=== PATIENT | female | born 1965 | race Caucasian/White ===

== ENCOUNTER → 2018-04-17 11:02 | Outpatient (CLI) | payer OTHER, SELFPAY ==
--- NOTE | 2018-04-17 | DI.MG.S_ITS ---
BILATERAL DIGITAL SCREENING MAMMOGRAM 3D/2D WITH CAD: 04/17/2018 CLINICAL: Routine screening. Family history of breast cancer. Comparison is made to exams dated: 04/16/2017 mammogram, 03/12/2016 mammogram, and 03/08/2015 mammogram - [facility]. There are scattered fibroglandular elements in both breasts. Current study was also evaluated with a Computer Aided Detection (CAD) system. There is a biopsy clip in the left breast. No significant masses, calcifications, or other findings are seen in either breast. There has been no significant interval change. IMPRESSION: NEGATIVE There is no mammographic evidence of malignancy. A 1 year screening mammogram is recommended. This exam was interpreted at Station ID: [id number]. NOTE: For mammograms, a report in lay terms will be sent to the patient. Approximately 15% of breast malignancies will not be visualized mammographically. In the management of a palpable breast mass, a negative mammogram must not discourage biopsy of a clinically suspicious lesion. Electronically Signed By: Dixon peres/leandra:04/17/2018 12:49:09 letter sent: Normal Exam ACR BI-RADS Category 1: Negative 3341F
== END ==
PROVIDERS: Family Provider Family Medicine; PCP Family Medicine; Visit Provider Family Medicine
DX: Z12.31 Encounter for screening mammogram for malignant neoplasm of breast (principal); Z80.3 Family history of malignant neoplasm of breast
CPT/HCPCS: 77063; 77067

== ENCOUNTER 2018-05-26 12:10 | Day surgery (SDC) | payer OTHER, SELFPAY ==
--- NOTE | 2018-05-26 | PATH_ITS ---
[facility] Accession Number: [id number] . 01 Material submitted: . PART A: CECAL POLYP PART B: PROXIMAL RIGHT COLON POLYP PART C: SIGMOID COLON POLYP . 02 Diagnosis: A. Cecum, Polyp, Biopsy: Tubular adenoma. . B. Proximal Right Colon, Polyp, Biopsy: Tubular adenoma. . C. Sigmoid Colon, Polyp, Biopsy: Tubular adenoma. MRV/05/28/2018 . 02 Electronically signed: . Bernadette uD MD, Pathologist NPI- [id number] . 01 Gross description: . Part A: CECAL POLYP: Received in formalin is 1 fragment(s) of henriquez, soft tissue measuring 0.4 x 0.3 x 0.2 cm submitted entirely in 1 cassette(s) Part B: PROXIMAL RIGHT COLON POLYP: Received in formalin is 1 fragment(s) of henriquez, soft tissue measuring 0.6 x 0.4 x 0.3 cm submitted entirely in 1 cassette(s) Part C: SIGMOID COLON POLYP: Received in formalin are multiple fragment(s) of henriquez, soft tissue measuring 0.8 x 0.3 x 0.2 cm in aggregate submitted entirely in 1 cassette(s) /CKI /CKI . 02 Pathologist provided ICD-10: D12.0, D12.6, D12.5 . 02 CPT . 144695, 921490, 204502 Specimen Comment: A duplicate report has been generated due to demographic updates. Performed at: [facility] [address] [id number] MD Constantine Haynes MD Phone: [phone] [facility]formed [facility]: [facility] [address] [place], [place] [id number] MD Adrian Ayala MD Phone: [phone]
[2018-05-26 13:17] VITALS: BP 164/90; PULSE 60; RESP 14; TEMP 37.2; O2SAT 99; BMI 24.3
--- NOTE | 2018-05-26 14:23 | PM.HP.1 ---
History of Present Illness Date Patient Seen: 05/26/18 Time Patient Seen: 14:24 Chief complaint: colonoscopy [id number] Narrative: Very pleasant 52-year-old lady here for her 1st screening colonoscopy. She reports that she had an episode of bowel obstruction several years ago and has since been a little worried about her bowel function. Objectively, she has no bowel function complaints. She does not have a known family history of colon cancer. She denies any bright red blood per rectum or any other change in her bowel habits. Patient History Surgical History History of dilatation and curettage (Acute) Status post appendectomy (12/13/14) Family & Social History Social History: household members spouse Meds Home Medications Medication Instructions Recorded Confirmed Type CALCIUM CARBONATE/VITAMIN D3 1 tab PO DAILY #0 04/14/11 History (Calcium 600 + Vit D 400 Tablet) FLAXSEED (FLAXSEED OIL) 1 cap PO Q DAY #0 04/14/11 05/26/18 History MULTIVITAMIN (#MULTIPLE VITAMINS) 1 cap PO Q DAY #0 04/14/11 05/26/18 History OMEGA-3/DHA/EPA/FISH OIL ([place]-3 1,000 mg PO BID #0 04/14/11 History Fish Oil 1,000 MG Sfgl) alprazolam 0.25 mg PO PRN #30 tab 05/15/16 05/26/18 Rx citalopram 20 mg PO QDAY #90 tab 07/15/17 05/26/18 Rx estradiol [Estrace] 0.01 % VAGINAL Q DAY PRN #42.5 gm 07/15/17 05/26/18 Rx sumatriptan succinate [Imitrex] 50 mg PO Q DAY PRN PRN 05/26/18 05/26/18 History Allergies Allergy/AdvReac Type Severity Reaction Status Date / Time Sulfa (Sulfonamide Allergy Severe RASH/SWOLLEN Unverified 05/26/18 13:14 Antibiotics) LYMPH NODES [SULFA (SULFONAMIDE ANTIBIOTICS)] trimethoprim [TRIMETHOPRIM] Allergy Severe RASH/SWOLLEN Unverified 05/26/18 13:14 LYMPH NODES zonisamide [ZONISAMIDE] Allergy Severe FULL BODY Unverified 05/26/18 13:14 RASH nickel Allergy Mild Itchy rash Verified 05/26/18 13:13 Review of Systems Review of Systems All systems reviewed & are unremarkable except as noted in HPI and below Exam Vital Signs (past 8 hours): - 05/26/18 13:17 Temperature 99.0 F Pulse Rate 60 Respiratory Rate 14 Blood Pressure 164/90 H Pulse Oximetry 99 Oxygen Delivery Method Room Air Narrative Exam Narrative: Very pleasant well-nourished and well-developed lady in no distress HEENT: Normocephalic and atraumatic, pupils equal round reactive to light accommodation with anicteric sclera Lungs: Clear auscultation bilaterally Heart: Regular rate and rhythm without murmur rub or gallop Abdomen: Soft, nontender, active bowel sounds Extremities: Warm well perfused without edema Assessment & Plan Plan: Assessment/Plan Narrative: Very pleasant 52-year-old lady here for her 1st screening colonoscopy. We discussed the risks and benefits of the procedure the patient expressed a desire to complete it today
--- NOTE | 2018-05-26 14:26 | P.HP_ITS ---
History of Present Illness Date Patient Seen: 05/26/18 Time Patient Seen: 14:24 Chief complaint: colonoscopy [id number] Narrative: Very pleasant 52-year-old lady here for her 1st screening colonoscopy. She reports that she had an episode of bowel obstruction several years ago and has since been a little worried about her bowel function. Objectively, she has no bowel function complaints. She does not have a known family history of colon cancer. She denies any bright red blood per rectum or any other change in her bowel habits. Patient History Surgical History History of dilatation and curettage (Acute) Status post appendectomy (12/13/14) Family & Social History Social History: household members spouse Meds Home Medications Medication Instructions Recorded Confirmed Type CALCIUM CARBONATE/VITAMIN D3 1 tab PO DAILY #0 04/14/11 History (Calcium 600 + Vit D 400 Tablet) FLAXSEED (FLAXSEED OIL) 1 cap PO Q DAY #0 04/14/11 05/26/18 History MULTIVITAMIN (#MULTIPLE VITAMINS) 1 cap PO Q DAY #0 04/14/11 05/26/18 History OMEGA-3/DHA/EPA/FISH OIL ([place]-3 1,000 mg PO BID #0 04/14/11 History Fish Oil 1,000 MG Sfgl) alprazolam 0.25 mg PO PRN #30 tab 05/15/16 05/26/18 Rx citalopram 20 mg PO QDAY #90 tab 07/15/17 05/26/18 Rx estradiol [Estrace] 0.01 % VAGINAL Q DAY PRN #42.5 gm 07/15/17 05/26/18 Rx sumatriptan succinate [Imitrex] 50 mg PO Q DAY PRN PRN 05/26/18 05/26/18 History Allergies Allergy/AdvReac Type Severity Reaction Status Date / Time Sulfa (Sulfonamide Allergy Severe RASH/SWOLLEN Unverified 05/26/18 13:14 Antibiotics) LYMPH NODES [SULFA (SULFONAMIDE ANTIBIOTICS)] trimethoprim [TRIMETHOPRIM] Allergy Severe RASH/SWOLLEN Unverified 05/26/18 13: 14 LYMPH NODES zonisamide [ZONISAMIDE] Allergy Severe FULL BODY Unverified 05/26/18 13:14 RASH nickel Allergy Mild Itchy rash Verified 05/26/18 13:13 Review of Systems Review of Systems All systems reviewed & are unremarkable except as noted in HPI and below Exam Vital Signs (past 8 hours): - 05/26/18 13:17 Temperature 99.0 F Pulse Rate 60 Respiratory Rate 14 Blood Pressure 164/90 H Pulse Oximetry 99 Oxygen Delivery Method Room Air Narrative Exam Narrative: Very pleasant well-nourished and well-developed lady in no distress HEENT: Normocephalic and atraumatic, pupils equal round reactive to light accommodation with anicteric sclera Lungs: Clear auscultation bilaterally Heart: Regular rate and rhythm without murmur rub or gallop Abdomen: Soft, nontender, active bowel sounds Extremities: Warm well perfused without edema Assessment & Plan Plan: Assessment/Plan Narrative: Very pleasant 52-year-old lady here for her 1st screening colonoscopy. We discussed the risks and benefits of the procedure the patient expressed a desire to complete it today
[2018-05-26] MEDS: MIDAZOLAM 5 MG/5 ML VIAL IV (14:58)
[2018-05-26] MEDS: fentaNYL 250 MCG/5 ML INJ IV (14:58)
--- NOTE | 2018-05-26 15:13 | PM.OP.1 ---
Operative Date/Time/Diagnoses Date of procedure: 05/26/18 Time of procedure: 15:13 Pre-op diagnosis: Screening colonoscopy Post-op diagnosis: same Procedure & Clinicians Procedure: Colonoscopy to the cecum with polypectomy x3 Same procedure as scheduled: Yes Indications: No prior colonoscopy Surgeon: Nora Ibarra Click Yes if Unassisted: Yes Anesthesia Type: Sedation (Versed 15 mg; fentanyl 400 mcg) Operative Notes Findings: 1. Excellent prep 2. One 3 mm polyp in the floor of the cecum-removed with cold forceps and submitted for pathology 3. One 3 mm sessile polyp in the proximal right colon-removed with cold forceps and submitted for pathology 4. One 5 mm sessile polyp at 15 cm-removed with cold forceps and submitted for pathology 5. Very minimal sigmoid diverticulosis 6. Grade 2 internal hemorrhoids Closure Type: not applicable Specimen(s): other (See list) Estimated Blood Loss (mL): 1 Procedure in detail: After obtaining informed consent, the patient was brought to the GI suite and placed in the left lateral decubitus position on the examination table. After placement of appropriate monitors, the patient was given incremental doses of Versed and Fentanyl until an appropriate level of sedation was achieved. A time out was held per SCOAP protocol. A digital rectal examination was performed and did not reveal any masses or obstructing lesions. The colonoscope was gently passed into the patient's anus and the entire colon navigated to the level of the cecum with minimal difficulty. Once in the cecum, the scope was withdrawn being sure to go before and beyond all mucosal folds and prominences and get an excellent examination. The findings are noted above. At the level of the rectal vault, the scope was retroflexed and the internal anal canal was examined. The scope was straightened and air aspirated from the colon. The instrument was removed from the patient's body and the procedure was concluded. The patient was allowed to awaken from sedation without difficulty and taken to the post-anesthesia care unit in good condition. Total sedation time 42 min Total withdrawal time 22 min Complications: none Condition: stable Disposition: PACU Plan for aftercare: 1. Discharge to home 2. Plan for repeat colonoscopy in 3 years due to the number and size of polyps.
[2018-05-26 15:17] VITALS: BP 120/75; PULSE 62; RESP 7; TEMP 36.6; O2SAT 97
[2018-05-26 15:22] VITALS: BP 125/82; PULSE 63; RESP 9; TEMP 36.6; O2SAT 97
[2018-05-26 15:26] VITALS: BP 118/79; PULSE 63; RESP 8; TEMP 36.4; O2SAT 98
[2018-05-26 15:29] VITALS: BP 119/84; PULSE 65; RESP 8; TEMP 36.6; O2SAT 97
== END 2018-05-26 15:49 | disposition home or self-care (01) ==
PROVIDERS: PCP Family Medicine; Visit Provider Surgery
PROC: 0DJD8ZZ Inspection of Lower Intestinal Tract, Via Natural or Artificial Opening Endoscopic (ICD-10-PCS; CPT 45378; principal; 2018-05-26 13:15)
DX: Z12.11 Encounter for screening for malignant neoplasm of colon (principal); K57.30 Diverticulosis of large intestine without perforation or abscess without bleeding; K64.1 Second degree hemorrhoids; D12.0 Benign neoplasm of cecum; D12.2 Benign neoplasm of ascending colon; D12.5 Benign neoplasm of sigmoid colon
CPT/HCPCS: 45380; 99152; 99153; J2250; J3010

== ENCOUNTER → 2018-11-05 10:48 | Outpatient (CLI) | payer OTHER, SELFPAY ==
[2018-11-05 12:21] LABS: Add Manual Diff / Slide Review NO; Basophils Absolute Auto 0 /uL (0-100); Basophils Percent Auto 0.5 % (0-2); Eosinophils Absolute Auto 100 /uL (0-450); Eosinophils Percent Auto 1.1 % (2-4); Hematocrit 44.7 % (36-46); Hemoglobin 14.8 g/dL (12.0-16.0); Lymphocytes Absolute Auto 1900 /uL (1100-4500); Lymphocytes Percent Auto 31.1 % (25-40); Mean Corpuscular HGB Conc 33.2 % (30-36); Mean Corpuscular Hemoglobin 32.3 PG (26-34); Mean Corpuscular Volume 97.4 fL (80-100); Monocytes Absolute Auto 400 /uL (0-900); Monocytes Percent Auto 5.8 % (3-14); Neutrophils Absolute Auto 3800 /uL (1500-7000); Neutrophils Percent Auto 61.5 % (50-75); Platelet Count 278 X10^3/uL (150-400); Red Blood Cell Count 4.59 X10^6/uL (4.0-5.2); Red Cell Distribution Width 12.4 % (11.6-14.8); White Blood Cell Count 6.2 X10^3/uL (4.5-11.0)
[2018-11-05 12:30] LABS: Alanine Aminotransferase 41 IU/L (9-52); Albumin 4.6 g/dL (3.5-5.0); Albumin Globulin Ratio 1.5 (1.0-2.8); Alkaline Phosphatase 62 U/L (38-126); Aspartate Aminotransferase 30 IU/L (14-36); BUN Creatinine Ratio 18.3 (6-22); Bilirubin Total 0.8 mg/dL (0.2-1.3); Blood Urea Nitrogen 11 mg/dL (7-17); Calcium 9.6 mg/dL (8.4-10.2); Carbon Dioxide 30 mmol/L (22-32); Chloride 98 mmol/L (98-107); Cholesterol 232 mg/dL (140-199); Estimated Glomerular Filt Rate > 60.0 mL/min (>60); Glucose 93 mg/dL (70-100); HEMOLYSIS < 15 (0-50); Magnesium 1.8 mg/dL (1.6-2.3); Potassium 4.7 mmol/L (3.4-5.1); Sodium 136 mmol/L (137-145); Total Protein 7.6 g/dL (6.3-8.2); Triglycerides 74 mg/dL (35-150)
[2018-11-05 12:44] LABS: HDL Cholesterol 113 mg/dL (40-60); LDL Cholesterol Calculated 104 mg/dL (<100)
[2018-11-05 12:59] LABS: Thyroid Stimulating Hormone 1.31 uIU/mL (0.47-4.68)
[2018-11-05 16:05] LABS: Microalbumin Urine Random < 0.6 mg/dL (0-1.6)
[2018-11-05 16:06] LABS: Creatinine Urine Random 18 mg/dL; Microalbumi Creatinin Ratio Ur < 33.3 ug/mg CR (<30)
== END ==
PROVIDERS: PCP Family Medicine; Visit Provider Family Medicine
DX: E78.5 Hyperlipidemia, unspecified (principal); I10 Essential (primary) hypertension; R89.9 Unspecified abnormal finding in specimens from other organs, systems and tissues
CPT/HCPCS: 36415; 80053; 80061; 82043; 82570; 83735; 84443; 85025

== ENCOUNTER → 2019-05-08 12:01 | Outpatient (CLI) | payer OTHER, SELFPAY ==
[2019-05-08 13:35] LABS: Cholesterol 231 mg/dL (140-199); Triglycerides 62 mg/dL (35-150)
[2019-05-08 13:45] LABS: HDL Cholesterol 134 mg/dL (40-60); LDL Cholesterol Calculated 85 mg/dL (<100)
== END ==
PROVIDERS: PCP Family Medicine; Visit Provider Family Medicine
DX: E78.5 Hyperlipidemia, unspecified (principal)
CPT/HCPCS: 80061

== ENCOUNTER → 2019-05-12 10:48 | Outpatient (CLI) | payer OTHER, SELFPAY ==
--- NOTE | 2019-05-12 | DI.MG.S_ITS ---
BILATERAL DIGITAL SCREENING MAMMOGRAM 3D/2D WITH CAD: 05/12/2019 CLINICAL: Routine screening. Family history of breast cancer. Comparison is made to exams dated: 04/17/2018 mammogram, 04/16/2017 mammogram, and 03/12/2016 mammogram - [facility]. There are scattered fibroglandular elements in both breasts. Current study was also evaluated with a Computer Aided Detection (CAD) system. There is a biopsy clip in the left breast. No significant masses, calcifications, or other findings are seen in either breast. There has been no significant interval change. IMPRESSION: NEGATIVE There is no mammographic evidence of malignancy. A 1 year screening mammogram is recommended. This exam was interpreted at Station ID: [id number]. NOTE: For mammograms, a report in lay terms will be sent to the patient. Approximately 15% of breast malignancies will not be visualized mammographically. In the management of a palpable breast mass, a negative mammogram must not discourage biopsy of a clinically suspicious lesion. Electronically Signed By: Dennise carty/leandra:05/12/2019 15:04:28 letter sent: Normal Exam ACR BI-RADS Category 1: Negative 3341F
== END ==
PROVIDERS: PCP Family Medicine; Visit Provider Family Medicine
DX: Z12.31 Encounter for screening mammogram for malignant neoplasm of breast (principal); Z80.3 Family history of malignant neoplasm of breast
CPT/HCPCS: 77063; 77067

== ENCOUNTER → 2019-08-20 11:37 | Outpatient (CLI) | payer OTHER, SELFPAY ==
[2019-08-20 12:27] LABS: BUN Creatinine Ratio 18.3 (6-22); Blood Urea Nitrogen 11 mg/dL (7-17); Calcium 9.1 mg/dL (8.4-10.2); Carbon Dioxide 32 mmol/L (22-32); Chloride 100 mmol/L (98-107); Estimated Glomerular Filt Rate > 60.0 mL/min (>60); Glucose 78 mg/dL (70-100); HEMOLYSIS < 15 (0-50); Potassium 3.8 mmol/L (3.4-5.1); Sodium 135 mmol/L (137-145)
== END ==
PROVIDERS: PCP Family Medicine; Visit Provider Family Medicine
DX: I10 Essential (primary) hypertension (principal)
CPT/HCPCS: 36415; 80048

== ENCOUNTER → 2020-05-31 15:54 | Outpatient (CLI) | payer OTHER, SELFPAY ==
--- NOTE | 2020-05-31 | DI.MG.S_ITS ---
BILATERAL DIGITAL SCREENING MAMMOGRAM 3D/2D WITH CAD: 05/31/2020 CLINICAL: Routine screening. Family history of breast cancer. Comparison is made to exams dated: 05/12/2019 mammogram, 04/17/2018 mammogram, and 04/16/2017 mammogram - [facility]. There are scattered fibroglandular elements in both breasts. Current study was also evaluated with a Computer Aided Detection (CAD) system. There is a biopsy clip in the left breast. No significant masses, calcifications, or other findings are seen in either breast. There has been no significant interval change. IMPRESSION: NEGATIVE There is no mammographic evidence of malignancy. A 1 year screening mammogram is recommended. This exam was interpreted at Station ID: [id number]. NOTE: For mammograms, a report in lay terms will be sent to the patient. Approximately 15% of breast malignancies will not be visualized mammographically. In the management of a palpable breast mass, a negative mammogram must not discourage biopsy of a clinically suspicious lesion. Electronically Signed By: Constantine montero/leandra:05/31/2020 16:21:11 letter sent: Normal Exam ACR BI-RADS Category 1: Negative 3341F
== END ==
PROVIDERS: PCP Family Medicine; Referring Provider Family Medicine; Visit Provider Family Medicine
DX: Z12.31 Encounter for screening mammogram for malignant neoplasm of breast (principal); Z80.3 Family history of malignant neoplasm of breast
CPT/HCPCS: 77063; 77067

== ENCOUNTER → 2020-06-03 10:57 | Outpatient (CLI) | payer OTHER, SELFPAY ==
[2020-06-03 11:54] LABS: Add Manual Diff / Slide Review NO; Basophils Absolute Auto 0 /uL (0-100); Basophils Percent Auto 0.6 % (0-2); Eosinophils Absolute Auto 100 /uL (0-450); Eosinophils Percent Auto 1.5 % (2-4); Hemoglobin 13.6 g/dL (12.0-16.0); Lymphocytes Absolute Auto 1400 /uL (1100-4500); Lymphocytes Percent Auto 27.5 % (25-40); Mean Corpuscular HGB Conc 33.2 % (30-36); Mean Corpuscular Hemoglobin 32.6 PG (26-34); Mean Corpuscular Volume 98.2 fL (80-100); Monocytes Absolute Auto 300 /uL (0-900); Monocytes Percent Auto 6.4 % (3-14); Neutrophils Absolute Auto 3200 /uL (1500-7000); Platelet Count 221 X10^3/uL (150-400); Red Blood Cell Count 4.18 X10^6/uL (4.0-5.2); Red Cell Distribution Width 12.8 % (11.6-14.8)
[2020-06-03 12:23] LABS: Alanine Aminotransferase 35 IU/L (<35); Albumin 4.2 g/dL (3.5-5.0); Albumin Globulin Ratio 1.4 (1.0-2.8); Alkaline Phosphatase 66 U/L (38-126); Aspartate Aminotransferase 38 IU/L (14-36); Bilirubin Total 0.6 mg/dL (0.2-1.3); Blood Urea Nitrogen 12 mg/dL (7-17); Calcium 9.1 mg/dL (8.4-10.2); Carbon Dioxide 29 mmol/L (22-32); Chloride 101 mmol/L (98-107); Cholesterol 221 mg/dL (140-199); Estimated Glomerular Filt Rate > 60.0 mL/min (>60); Glucose 97 mg/dL (70-100); HEMOLYSIS < 15 (0-50); Potassium 4.1 mmol/L (3.4-5.1); Sodium 134 mmol/L (137-145); Total Protein 7.2 g/dL (6.3-8.2); Triglycerides 55 mg/dL (35-150)
[2020-06-03 12:33] LABS: HDL Cholesterol 125 mg/dL (40-60); LDL Cholesterol Calculated 85 mg/dL (<100)
[2020-06-03 12:50] LABS: Thyroid Stimulating Hormone 0.941 uIU/mL (0.47-4.68)
== END ==
PROVIDERS: PCP Family Medicine; Referring Provider Family Medicine; Visit Provider Family Medicine
DX: I10 Essential (primary) hypertension (principal)
CPT/HCPCS: 36415; 80053; 80061; 84443; 85025

== ENCOUNTER → 2021-01-05 10:25 | Outpatient (CLI) | payer OTHER, SELFPAY ==
[2021-01-05 11:53] LABS: Hematocrit 43.2 % (36-46); Hemoglobin 14.1 g/dL (12.0-16.0); Mean Corpuscular HGB Conc 32.7 % (30-36); Mean Corpuscular Hemoglobin 32.6 PG (26-34); Mean Corpuscular Volume 99.7 fL (80-100); Platelet Count 221 X10^3/uL (150-400); Red Blood Cell Count 4.33 X10^6/uL (4.0-5.2); Red Cell Distribution Width 12.8 % (11.6-14.8)
[2021-01-05 12:06] LABS: Alanine Aminotransferase 24 IU/L (<35); Albumin 4.3 g/dL (3.5-5.0); Albumin Globulin Ratio 1.4 (1.0-2.8); Alkaline Phosphatase 52 U/L (38-126); Aspartate Aminotransferase 34 IU/L (14-36); BUN Creatinine Ratio 22.4 (6-22); Bilirubin Total 0.6 mg/dL (0.2-1.3); Blood Urea Nitrogen 13 mg/dL (7-17); Calcium 9.6 mg/dL (8.4-10.2); Carbon Dioxide 27 mmol/L (22-32); Chloride 97 mmol/L (98-107); Estimated Glomerular Filt Rate > 60.0 mL/min (>60); Globulin 3.1 g/dL (1.7-4.1); Glucose 97 mg/dL (70-100); HEMOLYSIS < 15 (0-50); Potassium 3.6 mmol/L (3.4-5.1); Sodium 133 mmol/L (137-145); Total Protein 7.4 g/dL (6.3-8.2)
== END ==
PROVIDERS: PCP Nurse Practitioner Family; Referring Provider Nurse Practitioner Family; Visit Provider Nurse Practitioner Family
DX: I10 Essential (primary) hypertension (principal)
CPT/HCPCS: 36415; 80053; 85027

== ENCOUNTER → 2021-04-04 11:02 | Outpatient (CLI) | payer OTHER, SELFPAY ==
[2021-04-04 13:39] LABS: BUN Creatinine Ratio 21.9 (6-22); Blood Urea Nitrogen 14 mg/dL (7-17); Calcium 9.8 mg/dL (8.4-10.2); Carbon Dioxide 28 mmol/L (22-32); Chloride 101 mmol/L (98-107); Estimated Glomerular Filt Rate > 60.0 mL/min (>60); Glucose 93 mg/dL (70-100); HEMOLYSIS < 15 (0-50); Potassium 4.3 mmol/L (3.4-5.1); Sodium 135 mmol/L (137-145)
[2021-04-04 14:22] LABS: Urine N gonorrhoeae NOT DETECTED
[2021-04-04 14:29] LABS: Urine Chlamydia NOT DETECTED
[2021-04-05 05:34] LABS: HSV 2 IGG AB 5.76 index (0.00-0.90); HSV1IGG < 0.91 index (0.00-0.90)
[2021-04-05 07:50] LABS: RPR Screen Non Reactive (Non Reactive)
[2021-04-05 17:48] LABS: HIV 1 & 2 Ab/Ag 4th Gen Combo NEGATIVE (NEGATIVE)
== END ==
PROVIDERS: PCP Nurse Practitioner Family; Referring Provider Nurse Practitioner Family; Visit Provider Nurse Practitioner Family
DX: N88.8 Other specified noninflammatory disorders of cervix uteri (principal); E87.1 Hypo-osmolality and hyponatremia
CPT/HCPCS: 36415; 80048; 86592; 86695; 86696; 87389; 87491; 87591

== ENCOUNTER → 2021-05-01 10:37 | Outpatient (CLI) | payer OTHER, SELFPAY ==
--- NOTE | 2021-05-01 10:40 | DI.CT.S_ITS ---
PROCEDURE: CT PELVIS W CON INDICATIONS: Abnormal friable cervix TECHNIQUE: After the administration of intravenous contrast, 5 mm thick sections acquired from the iliac crests to the symphysis. 5 mm coronal and sagittal reformats were acquired. For radiation dose reduction, the following was used: automated exposure control, adjustment of mA and/or kV according to patient size. COMPARISON: None. FINDINGS: Image quality: Excellent. Peritoneum and bowel: Bowel loops demonstrate normal wall thickness and caliber. Occasional colonic diverticula. No free fluid or air. Genitourinary: Bladder wall thickness is normal. Anteverted uterus is normal length measuring about 8.3 cm. The myometrium is slightly heterogeneous without a discrete mass visible. The contour of the cervix is within normal limits, though soft tissue definition on CT is suboptimal. No visible perineal mass. Ovaries are not well seen but there are no suspicious adnexal mass is visible. Nodes and vessels: No iliac, pelvic, or inguinal adenopathy by size criteria. Iliac vessels demonstrate normal size and enhancement. Bones: No suspicious bony lesions. Lower lumbar facet arthropathy and degenerative disc change. Mild degenerative changes in the hip joints. Miscellaneous: No inguinal hernias. IMPRESSION: 1. No suspicious pelvic mass or adenopathy. Dictated by: Dennise Wilson M.D. on 05/01/2021 at 14:43 Approved by: Dennise Wilson M.D. on 05/01/2021 at 14:48
== END ==
PROVIDERS: PCP Nurse Practitioner Family; Referring Provider Obstetrics & Gynecology; Visit Provider Obstetrics & Gynecology
DX: N88.9 Noninflammatory disorder of cervix uteri, unspecified (principal)
CPT/HCPCS: 72193

== ENCOUNTER → 2021-05-21 13:33 | Outpatient (CLI) | payer OTHER, SELFPAY ==
--- NOTE | 2021-05-21 13:33 | DI.MRI.S_ITS ---
PROCEDURE: MR PELVIS WO CON INDICATIONS: Post-coital bleeding and pain; Abn cervical anatomy TECHNIQUE: Coronal HASTE, sagittal breath-hold T2 FSE; axial T1 FSE with and without fat saturation through the pelvis. Optional long- and short-axis uterine nonbreath-hold T2 FSE through the uterus. Sagittal or axial dynamic VIBE during administration of contrast. Post-contrast axial or coronal VIBE/2-D FLASH with fat saturation from the iliac crests to the symphysis. Optional diffusion weighted imaging and ADC may be performed. COMPARISON: [facility], CT, CT PELVIS W CON, 05/01/2021, 10:56. FINDINGS: Image quality: Fair. Uterus: Uterus is anteverted and normal in size. Uterus measures 8.6 x 5 x 4.2 cm. No fibroids identified. Endometrium is within normal limits in thickness measuring 0.4 cm. Junctional zone is normal in thickness at 12 mm or less. Adnexa: Ovaries are not well seen. No suspicious cystic or solid lesions identified. Urinary system: Bladder wall is normal in thickness. Distal ureters are non distended. Urethra appears normal in morphology. Nodes and vessels: No pelvic or inguinal adenopathy by size criteria. Iliac vessels are normal in size. Bowel and peritoneum: No pathologic free pelvic fluid. Inferior colon and small bowel loops are normal in caliber. A few colonic diverticuli. Soft tissues: No inguinal hernias. No findings of pelvic floor incompetence in the absence of provocation. Bones: Marrow demonstrates normal overall signal. IMPRESSION: 1. Uterus is at the upper limits of normal in size. No fibroids identified. 2. Endometrium measures 0.4 cm in thickness. 3. The ovaries are not well seen. No cystic lesion. No free fluid. If clinically indicated consider further evaluation with pelvic ultrasound. Dictated by: Nando Allen M.D. on 05/21/2021 at 17:44 Approved by: Nando Allen M.D. on 05/21/2021 at 17:53
== END ==
PROVIDERS: PCP Nurse Practitioner Family; Referring Provider Obstetrics & Gynecology; Visit Provider Obstetrics & Gynecology
DX: N93.0 Postcoital and contact bleeding (principal); N88.9 Noninflammatory disorder of cervix uteri, unspecified
CPT/HCPCS: 72195

== ENCOUNTER → 2021-06-12 12:40 | Outpatient (CLI) | payer OTHER, SELFPAY ==
--- NOTE | 2021-06-12 12:41 | DI.US.S_ITS ---
PROCEDURE: US PELVIC COMPLETE INDICATIONS: abnormal MRI TECHNIQUE: Real-time scanning was performed of the pelvic organs, with image documentation. Additional endovaginal scanning was necessary due to incomplete visualization of the adnexal and endometrial structures by transabdominal scanning. COMPARISON: [facility], CT, CT PELVIS W CON, 05/01/2021, 10:56. [facility], MR, MR PELVIS WO CON, 05/21/2021, 13:48. FINDINGS: Uterus: Uterus is normal in size at 8.6 x 3.7 x 4.6 cm. The endometrium measures approximately 3 mm in combined thickness. There is irregularity seen along the cervix, with areas of apparent calcification. Ovaries: Neither ovary is well seen. Other: No pathologic free abdominal or pelvic fluid. IMPRESSION: The endometrial stripe does not appear thickened. Apparent calcifications seen involving the cervix. Differential diagnosis would bubbles of gas, however. Limited study, without visualization either ovary. Dictated by: Marbin Schaefer M.D. on 06/12/2021 at 12:46 Approved by: Marbin Schaefer M.D. on 06/12/2021 at 12:50
== END ==
PROVIDERS: PCP Nurse Practitioner Family; Referring Provider Nurse Practitioner Family; Visit Provider Nurse Practitioner Family
DX: N88.8 Other specified noninflammatory disorders of cervix uteri
CPT/HCPCS: 76830; 76856

== ENCOUNTER → 2021-07-17 16:17 | Outpatient (CLI) | payer OTHER, SELFPAY ==
--- NOTE | 2021-07-17 | DI.MG.S_ITS ---
BILATERAL DIGITAL SCREENING MAMMOGRAM 3D/2D WITH CAD: 07/17/2021 CLINICAL: Routine screening. Family history of breast cancer. Comparison is made to exams dated: 05/12/2019 mammogram, 04/17/2018 mammogram, and 05/31/2020 mammogram - [facility]. There are scattered fibroglandular elements in both breasts. Current study was also evaluated with a Computer Aided Detection (CAD) system. There is a biopsy clip in the left breast. No significant masses, calcifications, or other findings are seen in either breast. There has been no significant interval change. IMPRESSION: NEGATIVE There is no mammographic evidence of malignancy. A 1 year screening mammogram is recommended. This exam was interpreted at Station ID: [id number]. NOTE: For mammograms, a report in lay terms will be sent to the patient. Approximately 15% of breast malignancies will not be visualized mammographically. In the management of a palpable breast mass, a negative mammogram must not discourage biopsy of a clinically suspicious lesion. Electronically Signed By: Ricco lopez/leandra:07/18/2021 09:51:11 letter sent: Normal Exam ACR BI-RADS Category 1: Negative 3341F
== END ==
PROVIDERS: PCP Nurse Practitioner Family; Referring Provider Nurse Practitioner Family; Visit Provider Nurse Practitioner Family
DX: Z12.31 Encounter for screening mammogram for malignant neoplasm of breast (principal); Z80.3 Family history of malignant neoplasm of breast
CPT/HCPCS: 77063; 77067

== ENCOUNTER → 2022-08-27 11:21 | Outpatient (CLI) | payer OTHER, SELFPAY ==
--- NOTE | 2022-08-27 | DI.MG.S_ITS ---
BILATERAL DIGITAL SCREENING MAMMOGRAM 3D/2D WITH CAD: 08/27/2022 CLINICAL: Routine screening. Family history of breast cancer. Comparison is made to exams dated: 07/17/2021 mammogram, 05/31/2020 mammogram, and 05/12/2019 mammogram - [facility]. There are scattered areas of fibroglandular density in both breasts (category b / 25%-50% glandular tissue). Current study was also evaluated with a Computer Aided Detection (CAD) system. There is a biopsy clip in the left breast. No significant masses, calcifications, or other findings are seen in either breast. There has been no significant interval change. IMPRESSION: NEGATIVE There is no mammographic evidence of malignancy. A 1 year screening mammogram is recommended. Based on the Tyrer Cuzick model (a risk assessment model) the patient's lifetime risk is 10.6% and her 10 year risk is 4.1%. According to the ACR, ACS, and NCCN guidelines, an annual breast MRI exam along with mammogram is recommended if the patient's lifetime risk is 20% or greater. This exam was interpreted at Station ID: [id number]. NOTE: For mammograms, a report in lay terms will be sent to the patient. Approximately 15% of breast malignancies will not be visualized mammographically. In the management of a palpable breast mass, a negative mammogram must not discourage biopsy of a clinically suspicious lesion. Electronically Signed By: Ricco lopez/leandra:08/27/2022 11:47:04 letter sent: Normal Exam ACR BI-RADS Category 1: Negative 3341F
== END ==
PROVIDERS: PCP Family Medicine; Referring Provider Family Medicine; Visit Provider Pediatrics
DX: Z12.31 Encounter for screening mammogram for malignant neoplasm of breast (principal); Z80.3 Family history of malignant neoplasm of breast
CPT/HCPCS: 77063; 77067

== ENCOUNTER → 2023-07-15 11:48 | Outpatient (CLI) | payer OTHER, SELFPAY ==
[2023-07-15 12:57] LABS: Alanine Aminotransferase 26 IU/L (<35); Albumin 4.4 g/dL (3.5-5.0); Albumin Globulin Ratio 1.5 (1.0-2.8); Alkaline Phosphatase 63 U/L (38-126); Aspartate Aminotransferase 31 IU/L (14-36); BUN Creatinine Ratio 18.6 (6-22); Bilirubin Total 0.9 mg/dL (0.2-1.3); Blood Urea Nitrogen 11 mg/dL (7-17); Calcium 9.3 mg/dL (8.4-10.2); Carbon Dioxide 30 mmol/L (22-32); Chloride 101 mmol/L (98-107); Cholesterol 232 mg/dL (140-199); Estimated Glomerular Filt Rate > 60 mL/min (>60); Globulin 2.9 g/dL (1.7-4.1); Glucose 113 mg/dL (70-100); HEMOLYSIS < 15 (0-50); Potassium 3.9 mmol/L (3.4-5.1); Sodium 134 mmol/L (137-145); Total Protein 7.3 g/dL (6.3-8.2); Triglycerides 65 mg/dL (35-150)
[2023-07-15 13:14] LABS: HDL Cholesterol 125 mg/dL (40-60); LDL Cholesterol Calculated 94 mg/dL (<100)
[2023-07-15 15:23] LABS: Creatinine Urine Random 14.5 mg/dL
[2023-07-15 15:31] LABS: Microalbumin Urine Random < 0.6 mg/dL (0-1.6)
== END ==
PROVIDERS: PCP Family Medicine; Referring Provider Family Medicine; Visit Provider Family Medicine
DX: I10 Essential (primary) hypertension (principal); E78.5 Hyperlipidemia, unspecified
CPT/HCPCS: 36415; 80053; 80061; 82043; 82570

== ENCOUNTER → 2023-09-18 12:40 | Outpatient (CLI) | payer OTHER, SELFPAY ==
--- NOTE | 2023-09-18 12:41 | DI.MG.S_ITS ---
BILATERAL DIGITAL SCREENING MAMMOGRAM 3D/2D WITH CAD: 09/18/2023 CLINICAL: Routine screening. Family history of breast cancer. Comparison is made to exams dated: 08/27/2022 mammogram, 07/17/2021 mammogram, and 05/31/2020 mammogram - [facility]. Both breasts are heterogeneously dense, which may obscure small masses (category c / 51-75% glandular tissue). Current study was also evaluated with a Computer Aided Detection (CAD) system. There is a biopsy clip in the left breast. No significant masses, calcifications, or other findings are seen in either breast. There has been no significant interval change. IMPRESSION: BENIGN There is no mammographic evidence of malignancy. A 1 year screening mammogram is recommended. Based on the Tyrer Cuzick model (a risk assessment model) the patient's lifetime risk is 15.5% and her 10 year risk is 6.4%. According to the ACR, ACS, and NCCN guidelines, an annual breast MRI exam along with mammogram is recommended if the patient's lifetime risk is 20% or greater. This exam was interpreted at Station ID: [id number]. NOTE: For mammograms, a report in lay terms will be sent to the patient. Approximately 15% of breast malignancies will not be visualized mammographically. In the management of a palpable breast mass, a negative mammogram must not discourage biopsy of a clinically suspicious lesion. Electronically Signed By: Suman cardenas/leandra:09/18/2023 16:13:25 letter sent: Normal Exam ACR BI-RADS Category 2: Benign Finding(s) 3342F
== END ==
LOC: MAMMO 12:41
PROVIDERS: PCP Family Medicine; Referring Provider Family Medicine; Visit Provider Family Medicine
DX: Z12.31 Encounter for screening mammogram for malignant neoplasm of breast (principal); Z80.3 Family history of malignant neoplasm of breast; R92.333 Mammographic heterogeneous density, bilateral breasts
CPT/HCPCS: 77063; 77067

== ENCOUNTER → 2024-03-22 12:13 | Outpatient (CLI) | payer OTHER, SELFPAY ==
[2024-03-22 12:53] LABS: Add Manual Diff / Slide Review NO; Basophils Absolute Auto 0 /uL (0-100); Basophils Percent Auto 0.5 % (0-2); Eosinophils Absolute Auto 0 /uL (0-450); Eosinophils Percent Auto 0.4 % (2-4); Hematocrit 43.5 % (36-46); Hemoglobin 14.6 g/dL (12.0-16.0); Lymphocytes Absolute Auto 1800 /uL (1100-4500); Lymphocytes Percent Auto 31.5 % (25-40); Mean Corpuscular HGB Conc 33.6 % (30-36); Mean Corpuscular Hemoglobin 33.2 PG (26-34); Mean Corpuscular Volume 98.9 fL (80-100); Monocytes Absolute Auto 500 /uL (0-900); Monocytes Percent Auto 8.1 % (3-14); Neutrophils Absolute Auto 3500 /uL (1500-7000); Neutrophils Percent Auto 59.5 % (50-75); Platelet Count 209 X10^3/uL (150-400); Red Blood Cell Count 4.39 X10^6/uL (4.0-5.2); Red Cell Distribution Width 13.6 % (11.6-14.8); White Blood Cell Count 5.9 X10^3/uL (4.5-11.0)
[2024-03-22 13:34] LABS: Alanine Aminotransferase 32 IU/L (<35); Albumin 4.5 g/dL (3.5-5.0); Albumin Globulin Ratio 1.6 (1.0-2.8); Alkaline Phosphatase 98 U/L (38-126); Aspartate Aminotransferase 41 IU/L (14-36); BUN Creatinine Ratio 18.5 (6-22); Blood Urea Nitrogen 12 mg/dL (7-17); Calcium 9.8 mg/dL (8.4-10.2); Carbon Dioxide 27 mmol/L (22-32); Chloride 98 mmol/L (98-107); Estimated Glomerular Filt Rate > 60 mL/min (>60); Globulin 2.9 g/dL (1.7-4.1); Glucose 100 mg/dL (80-110); HEMOLYSIS < 15 (0-50); Potassium 4.1 mmol/L (3.4-5.1); Sodium 132 mmol/L (137-145); Total Protein 7.4 g/dL (6.3-8.2)
[2024-03-22 21:39] LABS: Hemoglobin A1C% w Est Avg Glu 5.3 % (4.0-6.0)
== END ==
LOC: LAB 12:14
PROVIDERS: PCP Family Medicine; Referring Provider Family Medicine; Visit Provider Family Medicine
DX: Z00.00 Encounter for general adult medical examination without abnormal findings (principal); R73.03 Prediabetes; E66.3 Overweight; I10 Essential (primary) hypertension
CPT/HCPCS: 36415; 80053; 83036; 85025

== ENCOUNTER 2024-08-20 08:00 | Day surgery (SDC) | payer OTHER, SELFPAY ==
[2024-08-20 09:09] VITALS: BP 155/90; PULSE 54; RESP 16; TEMP 36.6; O2SAT 97
[2024-08-20] MEDS: SODIUM CHLORIDE 0.9% 1,000 ML 42 ML IV (09:11)
--- NOTE | 2024-08-20 09:58 | P.HP_ITS ---
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) Dyspareunia Encounter for routine gynecological examination (01/09/21) Encounter for wellness examination in adult (01/09/21) Depression Migraine headache with aura (1989) Surgical History History of dilatation and curettage Status post appendectomy (12/13/14) Family History Father Cardiomyopathy Hypertension Hyperlipidemia Heart disease Grandfather CAD (coronary artery disease) Diabetes mellitus Heart disease Hypertension High cholesterol Grandmother Stroke Grandfather Heart disease Hypertension Grandmother Cancer Social History household members: spouse Smoking Status: Former smoker Tobacco: How many years used: 20 second hand exposure: No alcohol intake: current substance use type: does not use Meds Home Medications and Allergies Home Medications Medication Instructions Recorded Confirmed Type loteprednol etabonate 0.2 % eye EYE-BOTH 01/17/20 03/24/24 History drops,suspension alprazolam 0.25 mg tablet 0.25 mg PO PRN travel or procedure 11/27/22 08/20/24 Rx related anxiety #30 tabs calcium carbonate 600 mg-vitamin 1 tab PO DAILY 11/27/22 08/20/24 History D3 10 mcg (400 unit) tablet flaxseed oil 1,000 mg capsule 1,000 mg PO DAILY 11/27/22 08/20/24 History multivitamin 1 tab PO DAILY 11/27/22 08/20/24 History omega 6-xwx-nuf-fish oil 100 cap PO 11/27/22 03/24/24 History mg-160 mg-1,000 mg capsule (Fish Oil) amlodipine 10 mg tablet 10 mg PO DAILY #90 tabs 03/24/24 08/20/24 Rx citalopram 20 mg tablet 20 mg PO BEDTIME #90 tabs 03/24/24 08/20/24 Rx clobetasol 0.05 % topical ointment 1 applic topical BID 03/24/24 08/20/24 History estradiol 10 mcg vaginal tablet 10 mcg vaginal DAILY 03/24/24 03/24/24 History metoprolol succinate 50 mg 50 mg PO DAILY #90 tabs 03/24/24 08/20/24 Rx tablet,extended release 24 hr sumatriptan succinate 50 mg tablet See Rx Instructions PO .COMPLEX 03/24/24 08/20/24 Rx #18 tabs Allergies Allergy/AdvReac Type Severity Reaction Status Date / Time Sulfa (Sulfonamide Allergy Severe RASH/SWOLLEN Verified 07/16/23 11:02 Antibiotics) LYMPH NODES [SULFA (SULFONAMIDE ANTIBIOTICS)] trimethoprim [TRIMETHOPRIM] Allergy Severe RASH/SWOLLEN Verified 07/16/23 11:02 LYMPH NODES zonisamide [ZONISAMIDE] Allergy Severe FULL BODY Verified 07/16/23 11:02 RASH nickel Allergy Mild Itchy rash Verified 07/16/23 11:02 Review of Systems Review of Systems ROS: Yes All systems reviewed with the patient and are negative except as otherwise documented Exam Vital Signs (past 8 hours): - 08/20/24 09:09 Temperature 97.9 F Pulse Rate 54 L Respiratory Rate 16 Blood Pressure 155/90 H Pulse Oximetry 97 Oxygen Delivery Method Room Air Oxygen Delivery Method Room Air Narrative Exam Narrative: Normal abdominal exam, no abnormalities. Const General: cooperative Assessment & Plan Assessment and plan (1) Tubular adenoma of colon: Problem details: 2018 had 3 tubular adenomas, is due for a colonoscopy, had a good bowel prep yesterday, and will do the colonoscopy NOW. Status: Acute Time-Based Coding :: [TOTAL MINUTES] spent with patient and on the chart (including review of chart, obtaining history, exam, reviewing outside data, placing orders, documenting exam and treatment plan, and counseling patient) on [DATE].
--- NOTE | 2024-08-20 09:58 | PM.OP.COLON ---
Operative Date/Time/Diagnoses Date of procedure: 08/20/24 Time of procedure: 10:11 Pre-op diagnosis: 3 tubular adenoma 2018 Procedure & Clinicians Surgeon: Little Landaverde Procedure Notes Procedure in detail: OPERATIVE / PROCEDURE NOTE Vaibhav Gibbs, 1965, 59,Female,CSN: [id number] 08/20/24 PREOPERATIVE DIAGNOSIS: H/O 3 tubular adenomas 2017.. POSTOPERATIVE DIAGNOSIS: Same + Per the colonoscopy to the cecum: mild sigmoid diverticulosis noted + 1 cm Para cecal polypectomy performed. PROCEDURE DONE: Colonoscopy to the cecum. ANESTHESIA: MAC per Anesthesia. COMPLICATIONS: None. SPECIMENS: None. ESTIMATED BLOOD LOSS: NONE. CONDITION: Stable to the PACU. OPERATIVE DESCRIPTION: After proper informed consent was signed by the patient knowing all the risks, benefits, and potential complications and possible alternatives of the procedure, the patient was appropriately identified. Vaibhav Gibbs underwent a bowel prep that was very efficient yesterday, and the colon was clean. After institution of sedation on her left lateral decubitus position, a rectal exam was performed. Normal rectal and anal tone was found. The Olympus colonoscope was placed into her anus and under direct visualization was advanced from the rectum to the rectosigmoid to the sigmoid to the left colon, splenic flexure, transverse colon, hepatic flexure, ascending colon, and all the way to the cecum. Circumferential visualization of the mucosa was possible. The appendix aperture was noted. The ileocecal valve was noted. No large tumors. No ulcers. No inflammatory bowel disease changes were noted. Small few diverticulae noted in the right colon and none in the sigmoid colon!. In the rectum, the scope was retroflexed, and no internal hemorrhoids were noted. The scope was straightened back again. The colon was decompressed, and the scope was retracted out uneventfully. The patient tolerated the procedure well without any complications, was sent to the PACU in stable condition. RECOMMENDATIONS: Continue high-fiber diet - 30-40 gm/day with daily fiber supplementation. Recommend the next due colonoscopy to be in 10 yrs, unless she develops ANY symptoms, then she should have a repeat colonoscopy sooner, because she tested positive for genetic testing increasing her chance of colon cancer, apparently.
[2024-08-20 10:43] VITALS: BP 134/77; PULSE 51; RESP 14; TEMP 36.2; O2SAT 96
[2024-08-20 10:48] VITALS: BP 137/78; PULSE 53; RESP 13; O2SAT 96
[2024-08-20 10:53] VITALS: BP 125/78; PULSE 56; RESP 14; O2SAT 96
[2024-08-20 10:58] VITALS: BP 121/77; PULSE 51; RESP 10; TEMP 36.6; O2SAT 97
--- NOTE | 2024-08-20 11:01 | PM.HP.1 ---
History of Present Illness History of Present Illness Date Patient Seen: 08/20/24 Time Patient Seen: 11:02 Chief complaint: 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) Dyspareunia Encounter for routine gynecological examination (01/09/21) Encounter for wellness examination in adult (01/09/21) Depression Migraine headache with aura (1989) Surgical History History of dilatation and curettage Status post appendectomy (12/13/14) Family History Father Cardiomyopathy Hypertension Hyperlipidemia Heart disease Grandfather CAD (coronary artery disease) Diabetes mellitus Heart disease Hypertension High cholesterol Grandmother Stroke Grandfather Heart disease Hypertension Grandmother Cancer Social History household members: spouse Smoking Status: Former smoker Tobacco: How many years used: 20 second hand exposure: No alcohol intake: current substance use type: does not use Meds Home Medications and Allergies Home Medications Medication Instructions Recorded Confirmed Type loteprednol etabonate 0.2 % eye EYE-BOTH 01/17/20 03/24/24 History drops,suspension alprazolam 0.25 mg tablet 0.25 mg PO PRN travel or procedure 11/27/22 08/20/24 Rx related anxiety #30 tabs calcium carbonate 600 mg-vitamin 1 tab PO DAILY 11/27/22 08/20/24 History D3 10 mcg (400 unit) tablet flaxseed oil 1,000 mg capsule 1,000 mg PO DAILY 11/27/22 08/20/24 History multivitamin 1 tab PO DAILY 11/27/22 08/20/24 History omega 4-isy-rcm-fish oil 100 cap PO 11/27/22 03/24/24 History mg-160 mg-1,000 mg capsule (Fish Oil) amlodipine 10 mg tablet 10 mg PO DAILY #90 tabs 03/24/24 08/20/24 Rx citalopram 20 mg tablet 20 mg PO BEDTIME #90 tabs 03/24/24 08/20/24 Rx clobetasol 0.05 % topical ointment 1 applic topical BID 03/24/24 08/20/24 History estradiol 10 mcg vaginal tablet 10 mcg vaginal DAILY 03/24/24 03/24/24 History metoprolol succinate 50 mg 50 mg PO DAILY #90 tabs 03/24/24 08/20/24 Rx tablet,extended release 24 hr sumatriptan succinate 50 mg tablet See Rx Instructions PO .COMPLEX 03/24/24 08/20/24 Rx #18 tabs Allergies Allergy/AdvReac Type Severity Reaction Status Date / Time Sulfa (Sulfonamide Allergy Severe RASH/SWOLLEN Verified 07/16/23 11:02 Antibiotics) LYMPH NODES [SULFA (SULFONAMIDE ANTIBIOTICS)] trimethoprim [TRIMETHOPRIM] Allergy Severe RASH/SWOLLEN Verified 07/16/23 11:02 LYMPH NODES zonisamide [ZONISAMIDE] Allergy Severe FULL BODY Verified 07/16/23 11:02 RASH nickel Allergy Mild Itchy rash Verified 07/16/23 11:02 Review of Systems Review of Systems ROS: Yes All systems reviewed with the patient and are negative except as otherwise documented Exam Vital Signs (past 8 hours): - 08/20/24 09:09 08/20/24 10:43 08/20/24 10:48 Temperature 97.9 F 97.2 F L Pulse Rate 54 L 51 L 53 L Respiratory Rate 16 14 13 Blood Pressure 155/90 H 134/77 137/78 Pulse Oximetry 97 96 96 Oxygen Delivery Method Room Air Room Air Room Air 08/20/24 10:53 08/20/24 10:58 Temperature 98 F Pulse Rate 56 L 51 L Respiratory Rate 14 10 L Blood Pressure 125/78 121/77 Pulse Oximetry 96 97 Oxygen Delivery Method Room Air Room Air Oxygen Delivery Method Room Air Narrative Exam Narrative: Normal abdominal exam Assessment & Plan Assessment and plan (1) Colon cancer screening: Problem details: Needs colon cancer screening, did bowel prep last night and this morning, will do the colonoscopy NOW. Status: Acute Time-Based Coding :: [TOTAL MINUTES] spent with patient and on the chart (including review of chart, obtaining history, exam, reviewing outside data, placing orders, documenting exam and treatment plan, and counseling patient) on [DATE].
--- NOTE | 2024-08-20 11:37 | PM.OP.COLON ---
Operative Date/Time/Diagnoses Date of procedure: 08/20/24 Time of procedure: 11:37 Procedure & Clinicians Surgeon: Little Landaverde Procedure Notes Procedure in detail: OPERATIVE / PROCEDURE NOTE Vaibhav Gibbs, 1965, 59,Female,CSN: [id number] 08/20/24 PREOPERATIVE DIAGNOSIS: Colon cancer screening. POSTOPERATIVE DIAGNOSIS: Same + Per the colonoscopy to the cecum: 2 polypectomies were performed, 0.5 cm at 7 cm from the anal verge and 0.5 cm at 47 cm from the anal verge. PROCEDURE DONE: Colonoscopy to the cecum. ANESTHESIA: MAC per Anesthesia. COMPLICATIONS: None. SPECIMENS: None. ESTIMATED BLOOD LOSS: NONE. CONDITION: Stable to the PACU. OPERATIVE DESCRIPTION: After proper informed consent was signed by the patient knowing all the risks, benefits, and potential complications and possible alternatives of the procedure, the patient was appropriately identified. Vaibhav Gibbs underwent a bowel prep that was very efficient yesterday, and the colon was clean. After institution of sedation on her left lateral decubitus position, a rectal exam was performed. Normal rectal and anal tone was found. The Olympus colonoscope was placed into her anus and under direct visualization was advanced from the rectum to the rectosigmoid to the sigmoid to the left colon, splenic flexure, transverse colon, hepatic flexure, ascending colon, and all the way to the cecum. Circumferential visualization of the mucosa was possible. The appendix aperture was noted. The ileocecal valve was noted. No large tumors. No ulcers. No inflammatory bowel disease changes were noted. No diverticulae noted in the sigmoid colon. 2 polypectomies were performed, 0.5 cm at 7 cm from the anal verge and 0.5 cm at 47 cm from the anal verge. In the rectum, the scope was retroflexed, and Grade I internal hemorrhoids were noted. The scope was straightened back again. The colon was decompressed, and the scope was retracted out uneventfully. The patient tolerated the procedure well without any complications, was sent to the PACU in stable condition. RECOMMENDATIONS: Continue high-fiber diet - 30-40 gm/day with daily fiber supplementation. Will recommend the time of the next due colonoscopy AFTER the result of the path.
== END 2024-08-20 11:14 | disposition home or self-care (01) ==
PROVIDERS: PCP Family Medicine; Referring Provider Surgery; Visit Provider Surgery
PROC: 0DJD8ZZ Inspection of Lower Intestinal Tract, Via Natural or Artificial Opening Endoscopic (ICD-10-PCS; CPT 45378; principal; 2024-08-20 09:15)
DX: Z12.11 Encounter for screening for malignant neoplasm of colon (principal); Z86.0100 Personal history of colon polyps, unspecified; K57.30 Diverticulosis of large intestine without perforation or abscess without bleeding
CPT/HCPCS: 45378; 45385; J2704

== ENCOUNTER → 2024-10-20 10:56 | Outpatient (CLI) | payer OTHER, SELFPAY ==
[2024-10-20 13:08] LABS: Hemoglobin A1C% w Est Avg Glu 5.2 % (4.0-6.0)
[2024-10-20 13:28] LABS: Alanine Aminotransferase 30 IU/L (<35); Albumin 4.7 g/dL (3.5-5.0); Albumin Globulin Ratio 1.7 (1.0-2.8); Alkaline Phosphatase 77 U/L (38-126); Aspartate Aminotransferase 36 IU/L (14-36); BUN Creatinine Ratio 18.8 (6-22); Bilirubin Total 0.8 mg/dL (0.2-1.3); Blood Urea Nitrogen 13 mg/dL (7-17); Calcium 9.4 mg/dL (8.4-10.2); Carbon Dioxide 27 mmol/L (22-32); Chloride 98 mmol/L (98-107); Cholesterol 237 mg/dL (140-199); Estimated Glomerular Filt Rate > 60 mL/min (>60); Globulin 2.7 g/dL (1.7-4.1); Glucose 91 mg/dL (80-110); HEMOLYSIS < 15 (0-50); Potassium 4.6 mmol/L (3.4-5.1); Sodium 135 mmol/L (137-145); Total Protein 7.4 g/dL (6.3-8.2); Triglycerides 64 mg/dL (35-150)
[2024-10-20 13:38] LABS: HDL Cholesterol 125 mg/dL (40-60); LDL Cholesterol Calculated 99 mg/dL (<100)
== END ==
PROVIDERS: PCP Family Medicine; Referring Provider Family Medicine; Visit Provider Family Medicine
DX: R73.03 Prediabetes (principal); I10 Essential (primary) hypertension; E78.5 Hyperlipidemia, unspecified
CPT/HCPCS: 36415; 80053; 80061; 83036

== ENCOUNTER → 2024-11-10 14:55 | Outpatient (CLI) | payer OTHER, SELFPAY ==
--- NOTE | 2024-11-10 14:56 | DI.MG.S_ITS ---
MM screening mammo BI: 11/10/2024. BI-RADS: 2 CLINICAL: 59-year old female for bilateral screening mammogram. Tyrer-Cuzick lifetime risk of 8.2%. No personal or first-degree family history of breast cancer. The patient had a prior left breast biopsy. PRIOR EXAMS 09/18/2023, 08/27/2022, 07/17/2021, 05/31/2020, 05/12/2019, 04/17/2018, 04/16/2017, 03/12/2016, 03/08/2015. MAMMOGRAPHY TECHNIQUE: 2D and 3D (tomosynthesis) digital mammographic views obtained, with additional images as needed for full coverage. Current study was also evaluated with a Computer Aided Detection (CAD) system. DENSITY C. The breasts are heterogeneously dense, which may obscure small masses. MAMMOGRAPHY FINDINGS Right: No suspicious mass, asymmetry, microcalcification, or other abnormality seen. No significant change from comparison. Left: Biopsy marker present on the left. There are no suspicious masses, calcifications, or other findings in the breast. No significant change from comparison. IMPRESSION: Right * No evidence of malignancy. Left * No evidence of malignancy with benign findings. RECOMMENDATIONS Bilateral * Annual screening mammography. OVERALL ASSESSMENT CATEGORY BI-RADS-2: Benign. The [employer] recommends annual screening mammography beginning at age 40 for women with average risk of breast cancer. ELECTRONICALLY SIGNED: Kassandra Armijo M.D. on 11/10/2024 at 04:41:58 PM PT Interpreting Station ID: [id number]
== END ==
PROVIDERS: PCP Family Medicine; Referring Provider Family Medicine; Visit Provider Family Medicine
DX: Z12.31 Encounter for screening mammogram for malignant neoplasm of breast (principal); R92.333 Mammographic heterogeneous density, bilateral breasts
CPT/HCPCS: 77063; 77067